=== PATIENT | male | born 1945 | race Caucasian/White ===

== ENCOUNTER 2020-12-06 19:15 | Emergency (ER) | payer OTHER, MEDICARE ==
[~2020-12-06] VITALS: Ht 175.3 cm; Wt 75.0 kg
[~2020-12-06 19:15] MED LIST: LIB25C PO
[2020-12-06] MEDS ORDERED: bacitracin 15gm ointment TP ONE (19:50)
[2020-12-06] MEDS ORDERED: LIDOcaine 1% W/epiNEPHrine 1:200,000 10ml vial IJ ONE (19:50)
--- NOTE | 2020-12-06 20:20 | NUR ---
[employer] at bedside. Legal draw completed. Pt is calm and cooperative and denies any pain. Lip lac to left upper lip still bleeding. vss.
[2020-12-06] MEDS ORDERED: ceFAZolin 1gm IM kit IM ONE (20:45)
--- NOTE | 2020-12-06 21:15 | NUR ---
CT REPORT "FRACTURE OF THE MAXILLARY SPINE". JORDY SHAW CONSULTING WITH [facility] AT [facility]IDE [facility]. [employer] OFFICER REMAINS AT BEDSIDE. PT WITH STABLE. VS. GIVEN ROCEFIN IM.
[2020-12-06] MEDS ORDERED: HYDR-3965 PO (21:19)
[2020-12-06] MEDS ORDERED: ONDA4TAB6 PO (21:19)
--- NOTE | 2020-12-06 21:22 | NUR ---
JORDY SHAW TALKING WITH PT ABOUT FOLLOW UP WITH ORTHOPEDICS FOR THE FREACTURE. DR. BLANCHARD, ENT HAS BEEN CONSULTED. PT TO BE CLEARED FOR [facility].
[2020-12-06 21:27] VITALS: BP 140/101
== END 2020-12-06 21:55 ==
LOC: ER 19:15
DX: S01.511A Laceration without foreign body of lip, initial encounter (principal); F10.129 Alcohol abuse with intoxication, unspecified; Z72.89 Other problems related to lifestyle; Z56.0 Unemployment, unspecified; Z59.0 Homelessness; Z79.899 Other long term (current) drug therapy; V87.7XXA Person injured in collision between other specified motor vehicles (traffic), initial encounter; Y93.89 Activity, other specified; Y92.89 Other specified places as the place of occurrence of the external cause; Y99.8 Other external cause status; Y90.9 Presence of alcohol in blood, level not specified
CPT/HCPCS: 12011; 70450; 70486; 96372; 99285; J0690